=== PATIENT | male | born 1980 | race Caucasian/White ===

== ENCOUNTER 2021-01-23 20:18 | Emergency (ER) | payer OTHER ==
[2021-01-23] MEDS ORDERED: Cephalexin 250 MG CAP ONE (20:37)
== END 2021-01-23 20:55 | disposition home or self-care (01) ==
LOC: BURERS 20:18
DX: S61.217A Laceration without foreign body of left little finger without damage to nail, initial encounter (principal); I49.9 Cardiac arrhythmia, unspecified; I48.91 Unspecified atrial fibrillation; W25.XXXA Contact with sharp glass, initial encounter
CPT/HCPCS: 99282